=== PATIENT | female | born 1990 | race Caucasian/White ===

== ENCOUNTER 2017-03-14 21:43 | Emergency (ER) | payer MEDICAID ==
[2017-03-14 21:44] VITALS: BMI 24.3
[2017-03-14 22:06] VITALS: TEMP 98.6
[2017-03-14 22:45] LABS: PH,URINE 6.5 (4.7-8.0); URINE BILIRUBIN NEGATIVE (NEGATIVE); URINE BLOOD NEGATIVE (NEGATIVE); URINE GLUCOSE (UA) NEGATIVE (NEGATIVE); URINE KETONE TRACE mg/dL (NEGATIVE); URINE LEUKOCYTE ESTERASE MODERATE Leu/uL (NEGATIVE); URINE PROTEIN TRACE mg/dL (<30 mg/dL); URINE UROBILINOGEN 0.2 E.U./dL (<1 E.U./dL)
[2017-03-14 22:45] LABS: BASO # 0.01 K/mm3 (0.0-2.0); BASO % 0.1 % (0.0-3.0); EOS # 0.2 (0.0-0.7); EOS % 2.4 % (1.5-5.0); GRAN # 5.14 (1.4-6.5); GRAN % 60.7 % (50.0-68.0); HEMATOCRIT 34.7 % (36.0-48.0); LYMPH # 2.4 (1.2-3.4); LYMPH % 28.5 % (22.0-35.0); MEAN CELL VOLUME 89.9 fl (80.0-105.0); MEAN CORPUSCULAR HEMOGLOBIN 31.6 pg (25.0-35.0); MEAN CORPUSCULAR HGB CONC 35.2 g/dl (31.0-37.0); MEAN PLATELET VOLUME 10.4 fl (7.0-11.0); MONO # 0.7 (0.1-0.6); MONO % 8.3 % (1.0-6.0); RED CELL DISTRIBUTION WIDTH 13.6 % (11.5-14.5); WHITE BLOOD COUNT 8.5 10^3/ul (4.5-11.0)
[2017-03-14 22:48] LABS: URINE APPEARANCE CLEAR (CLEAR); URINE BACTERIA LARGE (NEG); URINE COLOR YELLOW (YELLOW); URINE RBC 0 - 2 /hpf (0-2)
--- NOTE | 2017-03-14 22:49 | ED PDOC ---
Arrival/HPI - General Chief Complaint: Female Genitourinary Time Seen by Provider: 03/14/17 22:11 Historian: Patient - History of Present Illness Narrative History of Present Illness (Text): 03/14/17 22:45 26 yo F ~5 months , presents to the ER reports several day history of intermittent squeezing type pain diffuse across her upper and mid abdomen, which last for 1 min and resolve spontaneously, states that she is very sure that her symptoms are celestina-thakur contractions, however, she has not had any care or prior US for this due to insurance. She does add that she is taking vitamins. Otherwise: (-) N/V, (-) fever, (-) urinary symptoms, (-) vaginal bleeding, (-) other complaints. FAMILY INDEPENDENCE CASE MANAGER HISTORY: 3 Para 2 LMP November 2013 Past Medical History - Provider Review Nursing Documentation Reviewed: Yes - Past History Past History: No Previous - Infectious Disease Hx of Infectious Diseases: None - Tetanus Immunization Tetanus Immunization: Unknown - Past Medical History Past Medical History: No Previous - Pulmonary Hx Respiratory Disorders: No - Neurological Hx Neurological Disorder: No - HEENT Hx HEENT Disorder: No - Renal Hx Renal Disorder: No - Endocrine/Metabolic Hx Endocrine Disorders: No - Hematological/Oncological Hx Blood Disorders: No - Integumentary Hx Dermatological Disorder: No - Musculoskeletal/Rheumatological Hx Musculoskeletal Disorders: No - Gastrointestinal Hx Gastrointestinal Disorders: No - Genitourinary/Gynecological Hx Genitourinary Disorders: No - Psychiatric Hx Psychophysiologic Disorder: No Hx Depression: No Hx Emotional Abuse: No Hx Physical Abuse: No Hx Substance Use: No - Past Surgical History Past Surgical History: No Previous - Suicidal Assessment Feels Threatened In Home Enviroment: No Family/Social History - Physician Review Nursing Documentation Reviewed: Yes Family/Social History: Unknown Family HX Smoking Status: Never Smoked Hx Alcohol Use: No Hx Substance Use: No Hx Substance Use Treatment: No Allergies/Home Meds Allergies/Adverse Reactions: Allergies No Known Allergies Allergy (Verified 03/14/17 22:05) Home Medications: Home Meds Medication Instructions Recorded Confirmed Vit No.126/Iron/Folic 1 tab PO DAILY 03/14/17 03/14/17 [Prenavite] Review of Systems - Review of Systems Constitutional: Normal, Weight Change (related to ). absent: Fatigue, Fevers Respiratory: Normal. absent: SOB, Cough, Sputum Cardiovascular: Normal. absent: Chest Pain, Palpitations, Edema Gastrointestinal: Normal, Abdominal Pain (related to ), Nausea ( related to GERD from ). absent: Stool Changes, Constipation, Vomiting , Appetite Changes Genitourinary Female: Normal. absent: Dysuria, Frequency, Hematuria, Vaginal Bleeding, Vaginal Discharge Musculoskeletal: Normal. absent: Arthralgias, Back Pain, Neck Pain Skin: Normal. absent: Rash, Pruritis, Skin Lesions Physical Exam - Physical Exam Narrative Physical Exam (Text): 03/14/17 22:50 GENERAL APPEARANCE: Patient is awake, alert, oriented x 3, in no acute distress. SKIN: Warm, dry; (-) cyanosis. EYES: (-) conjunctival pallor, (-) scleral icterus. ENMT: Mucous membranes moist. NECK: (-) tenderness, (-) stiffness, (-) lymphadenopathy. CHEST AND RESPIRATORY: (-) rales, (-) rhonchi, (-) wheezes; breath sounds equal bilaterally. HEART AND CARDIOVASCULAR: (-) irregularity; (-) murmur, (-) gallop. ABDOMEN AND GI: (+) gravid abdomen, (-) distention. Bowel sounds active; (-) tenderness, (+) palpable uterus above the umbilicus, (-) guarding, (-) rebound, (-) palpable masses, (-) CVA tenderness. EXTREMITIES: (-) deformity, (-) edema, (+) distal pulses. NEURO AND PSYCH: Mental status as above; (-) focal Vital Signs Temp Pulse Resp BP Pulse Ox 03/14/17 23:37 67 16 120/71 97 03/14/17 22:06 98.6 F 75 18 130/77 99 Medical Decision Making ED Course and Treatment: 03/14/17 22:49 26 yo F ~5 months , presents to the ER reports several day history of intermittent squeezing type pain diffuse across her upper and mid abdomen, which last for 1 min and resolve spontaneously, believes symptoms are celestina- thakur contractions, however patient has not had care or US for this . Plan - Labs - UA - Pelvic US 03/15/17 22:05 Labs results reviewed : UA +UTI. Lab and US results d/w the patient. Dx of UTI and celestina thakur contractions d/w the patient. On re-evaluation, patient laying in bed in no acute distress. Reports no abdominal pain or vaginal bleeding. Advised to continue taking vitamins and informed of the importance of f/u with OB for proper care, which the patient verbalize understanding of. - Lab Interpretations Lab Results: 03/14/17 22:35 03/14/17 22:35 Lab Results 03/14/17 22:35: Sodium 138, Potassium 3.4 L, Chloride 105, Carbon Dioxide 25, Anion Gap 11, BUN 10, Creatinine 0.4 L, Est GFR ( Amer) > 60, Est GFR ( Non-Af Amer) > 60, Random Glucose 86, Calcium 9.3, Total Bilirubin 0.5, AST 23, ALT 32, Alkaline Phosphatase 79, Total Protein 7.3, Albumin 3.8, Globulin 3.5, Albumin/Globulin Ratio 1.1 03/14/17 22:35: WBC 8.5 D, RBC 3.86, Hgb 12.2, Hct 34.7 L, MCV 89.9, MCH 31.6, MCHC 35.2, RDW 13.6, Plt Count 252, MPV 10.4, Gran % 60.7, Lymph % (Auto) 28.5, Real % (Auto) 8.3 H, Eos % (Auto) 2.4, Baso % (Auto) 0.1, Gran # 5.14, Lymph # 2.4, Real # 0.7 H, Eos # 0.2, Baso # 0.01 03/14/17 22:30: Urine Color Yellow, Urine Appearance Clear, Urine pH 6.5, Ur Specific [place] 1.020, Urine Protein Trace H, Urine Glucose (UA) Negative, Urine Ketones Trace H, Urine Blood Negative, Urine Nitrate Negative, Urine Bilirubin Negative, Urine Urobilinogen 0.2, Ur Leukocyte Esterase Moderate H, Urine RBC 0 - 2, Urine WBC 5 - 10, Ur Epithelial Cells 4 - 5, Urine Bacteria Large - RAD Interpretation Narrative RAD Interpretations (Text): 03/14/17 23:22 Pelvic US : FINDINGS: Fetus: Single live intrauterine gestation. Heart rate: heart rate of 147 beats per minute. Presentation: Cephalic. Placenta: Anterior placenta. No placenta previa or abruption. Amniotic fluid: Normal. Anatomy: No gross anomaly is appreciated. BIOMETRICS Gestational age by US: Estimated gestational age of 27 weeks 2 days by measurements. EFW: Estimated weight of 971 g. BPD: 6.9 cm, correlating with 27 weeks 6 days. HC: 25.5 cm, correlating with 27 weeks 5 days. AC: 21.4 cm, correlating with 25 weeks 6 days. FL: 5.1 cm, correlating with 27 weeks 3 days. MATERNAL: Uterus: Unremarkable. No myometrial mass. Cervix: No cervical dilatation or effacement. Adnexa: Ovaries not visualized. No adnexal masses. Free fluid: No significant free fluid. IMPRESSION: 1. Single live intrauterine gestation. Dictated By: Cesar Lemon MD Dictated Date/Time: 03/14/17 5151 Radiology Orders: 03/14/17 22:20 AGE [US] Routine - Medication Orders Current Medication Orders: Discontinued Medications Nitrofurantoin Macrocrystals (Macrobid) 100 mg PO STAT STA Stop: 03/14/17 22:59 Last Admin: 03/14/17 23:16 Dose: 100 mg Potassium Chloride (Potassium Chloride Oral Soln) 20 meq PO STAT STA Stop: 03/14/17 22:59 Last Admin: 03/14/17 23:16 Dose: 20 meq - PA / CALCULUS PROFESSOR / Resident Statement /DO has reviewed & agrees with the documentation as recorded. Disposition/Present on Arrival - Present on Arrival Any Indicators Present on Arrival: No History of DVT/PE: No History of Uncontrolled Diabetes: No Urinary Catheter: No History of Decub. Ulcer: No History Surgical Site Infection Following: None - Disposition Have Diagnosis and Disposition been Completed?: Yes Diagnosis: UTI (urinary tract infection), [place] Thakur' contraction Disposition: HOME/ ROUTINE Disposition Time: 23:23 Patient Plan: Discharge Condition: STABLE Discharge Instructions (ExitCare): Urinary Tract Infection in (ED), [place] Thakur Contractions (ED) Print Language: ALB[place]IAN Additional Instructions: Thank you for letting us take care of you today. You were treated for celestina - thakur contractions, UTI. The emergency medical care you received today was directed at your acute symptoms. If you were prescribed any medication, please fill it and take as directed. It may take several days for your symptoms to resolve. Return to the Emergency Department if your symptoms worsen, do not improve, or if you have any other problems. Please contact an [facility] doctor in 2 days for re-evaluation and follow up. Bring any paperwork you were given at discharge with you along with any medications you are taking to your follow up visit. Our treatment cannot replace ongoing medical care by a primary care provider (PCP) outside of the emergency department. Thank you for allowing the [facility] team to be part of your care today. Prescriptions: Nitrofurantoin Macrocrystals [Macrobid] 100 mg PO BID #14 cap Referrals: Katheryn Coyle, [Primary Care Provider] - Follow up with primary Forms: Purch ([place] Sor[place]), WORK NOTE
[2017-03-14 22:51] LABS: ALB/GLOB RATIO 1.1 (1.1-1.8); ALKALINE PHOSPHATASE 79 U/L (38-126); ALT/SGPT 32 U/L (7-56); AST/SGOT 23 U/L (14-36); BILIRUBIN,TOTAL 0.5 mg/dL (0.2-1.3); BLOOD UREA NITROGEN 10 mg/dL (7-21); CALCIUM 9.3 mg/dL (8.4-10.5); CARBON DIOXIDE 25 mmol/L (21-33); CHLORIDE 105 mmol/L (98-107); GFR AFRICAN-AMERICAN > 60; GLUCOSE,RANDOM 86 mg/dL (70-110); POTASSIUM 3.4 mmol/L (3.6-5.0); SODIUM 138 mmol/L (132-148); TOTAL PROTEIN 7.3 g/dL (5.8-8.3)
[2017-03-14] MEDS ORDERED: Potassium Chloride 20 mEq/15 ml LIQ UD PO STA (22:58)
--- NOTE | 2017-03-14 23:15 | US ---
EXAM: US After First Trimester, Transabdominal CLINICAL HISTORY: 26 years old, female; Pain; Other: Lower abd pain; Gestational age or lmp: Unsure; ; Additional info: 5 months , abd pain TECHNIQUE: Real-time transabdominal obstetrical ultrasound of the maternal pelvis and a second or third trimester with image documentation. COMPARISON: No relevant prior studies available. FINDINGS: Fetus: Single live intrauterine gestation. Heart rate: heart rate of 147 beats per minute. Presentation: Cephalic. Placenta: Anterior placenta. No placenta previa or abruption. Amniotic fluid: Normal. Anatomy: No gross anomaly is appreciated. BIOMETRICS Gestational age by US: Estimated gestational age of 27 weeks 2 days by measurements. EFW: Estimated weight of 971 g. BPD: 6.9 cm, correlating with 27 weeks 6 days. HC: 25.5 cm, correlating with 27 weeks 5 days. AC: 21.4 cm, correlating with 25 weeks 6 days. FL: 5.1 cm, correlating with 27 weeks 3 days. MATERNAL: Uterus: Unremarkable. No myometrial mass. Cervix: No cervical dilatation or effacement. Adnexa: Ovaries not visualized. No adnexal masses. Free fluid: No significant free fluid. IMPRESSION: 1. Single live intrauterine gestation.
[2017-03-14 23:38] VITALS: BP 120/71; PULSE 67; RESP 16; O2SAT 97
== END 2017-03-14 23:38 | disposition home or self-care (01) ==
LOC: ED 21:43
DX: O23.42 Unspecified infection of urinary tract in pregnancy, second trimester (principal); O47.02 False labor before 37 completed weeks of gestation, second trimester; Z3A.27 27 weeks gestation of pregnancy